=== PATIENT | female | born 1990 | race African-American/Black ===

== ENCOUNTER 2018-11-10 21:35 | Emergency (ER) | payer BC ==
[2018-11-10] MEDS ORDERED: Cyclobenzaprine 10 MG TAB ONE (22:19)
[2018-11-10] MEDS ORDERED: Acetaminophen 500 MG TAB ONE (22:19)
[2018-11-10] MEDS ORDERED: Ibuprofen 800 MG TAB ONE (22:19)
--- NOTE | 2018-11-10 23:02 | CT ---
CERVICAL SPINE CT WITHOUT CONTRAST: Date: 11-10-18 Comparison: None. History: Injury, trauma, pain. Technique: Axial CT imaging at 2 mm intervals through the cervical spine with coronal and sagittal re formatted imaging. FINDINGS: Craniocervical junction, atlantoaxial interspace, and cervico thoracic junction appear intact. The visualized lung apices appear unremarkable. The visualized paranasal sinuses and mastoid air cells are well aerated. The C1 ring is intact. The occipital condyles, the dens, and the C1-2 articulation appear within normal limits. No displaced fracture or evidence of dislocation is seen. IMPRESSION: 1. No acute findings. POS: [facility]
== END 2018-11-10 22:44 | disposition home or self-care (01) ==
LOC: MADERS 21:35
DX: S16.1XXA Strain of muscle, fascia and tendon at neck level, initial encounter (principal); V40.6XXA Car passenger injured in collision with pedestrian or animal in traffic accident, initial encounter
CPT/HCPCS: 72125